=== PATIENT | female | born 1995 | race Caucasian/White ===

== ENCOUNTER 2021-02-04 17:33 | Emergency (ER) | payer MEDICAID ==
[~2021-02-04] VITALS: Ht 157.5 cm; Wt 58.2 kg
[2021-02-04 19:31] VITALS: BP 118/71
[2021-02-04] MEDS ORDERED: CLINDAMYCIN HCL 150 MG CAPSULE. PO ONE (21:00)
[2021-02-04] MEDS ORDERED: LIDOCAINE 1% Multi-Dose 20 ML VIAL. INJ ONE (21:00)
--- NOTE | 2021-02-04 21:10 | PHYS DOC ---
Past Medical History Past Medical History: No Pertinent History Past Surgical History: Smoking Status: Never Smoker Alcohol Use: None General Adult EDM: Chief Complaint: BREAST PROBLEM HPI: HPI: Patient is a 25 year old female who presents with left breast abscess beside the nipple loss. She states that she does get these and just moved here to [place] from [place]. She states that she was seen by a breast specialist who put her on clindamycin in the past and that helped. She is now starting to have some pinkness around the abscesses on her skin starting to form some cellulitis. She states that she is been doing warm compresses and ibuprofen and its not breaking open or draining like it has in the past. She rates her pain 7 out of 10 and states is a burning tender sensation. She states no discharge from her nipples. She denies fever, nausea, vomiting, diarrhea, abdominal pain, chest pain, shortness of breath. She states she tends to get these abscesses around at the time of her periods. Review of Systems: Review of Systems: Constitutional: Denies fever or chills. [] Eyes: Denies change in visual acuity. [] HENT: Denies nasal congestion or sore throat. [] Respiratory: Denies cough or shortness of breath. [] Cardiovascular: Denies chest pain or edema. [] GI: Denies abdominal pain, nausea, vomiting, bloody stools or diarrhea. [] : Denies dysuria. [] Musculoskeletal: Denies back pain or joint pain. + Breast pain [] Integument: Denies rash. + Breast abscess. + Breast redness [] Neurologic: Denies headache, focal weakness or sensory changes. [] Endocrine: Denies polyuria or polydipsia. [] Lymphatic: Denies swollen glands. [] Psychiatric: Denies depression or anxiety. [] Heart Score: C/O Chest Pain: No Risk Factors: Risk Factors: DM, Current or recent (<one month) smoker, HTN, HLP, family history of CAD, obesity. Risk Scores: Score 0 - 3: 2.5% MACE over next 6 weeks - Discharge Home Score 4 - 6: 20.3% MACE over next 6 weeks - Admit for Clinical Observation Score 7 - 10: 72.7% MACE over next 6 weeks - Early Invasive Strategies Current Medications: Current Medications Medications (Trade) Dose Ordered Sig/Gisele Start Time Stop Time Status Last Admin Dose Admin Clindamycin HCl (Cleocin) 300 mg 1X ONCE 02/04/21 21:00 02/04/21 21:01 UNV Lidocaine HCl (Lidocaine 1% 20ml Vial) 20 ml 1X ONCE 02/04/21 21:00 02/04/21 21:01 UNV Physical Exam: PE: Constitutional: Well developed, well nourished, no acute distress, non-toxic appearance. [] HENT: Normocephalic, atraumatic, bilateral external ears normal, oropharynx moist, no oral exudates, nose normal. [] Eyes: PERRLA, EOMI, conjunctiva normal, no discharge. [] Neck: Normal range of motion, no tenderness, supple, no stridor. [] Cardiovascular:Heart rate regular rhythm, no murmur [] Lungs & Thorax: Bilateral breath sounds clear to auscultation [] Abdomen: Bowel sounds normal, soft, no tenderness, no masses, no pulsatile masses. [] Skin: Warm, dry, left breast pink erythema, no rash. + Left breast fluctuant abscess on both sides at 9 and 3 PM on the nipple. [] Back: No tenderness, no CVA tenderness. [] Extremities: No tenderness, no cyanosis, no clubbing, ROM intact, no edema. [] Neurologic: Alert and oriented X 3, normal motor function, normal sensory function, no focal deficits noted. [] Psychologic: Affect normal, judgement normal, mood normal. [] Current Patient Data: Vital Signs: Vital Signs Date Time Temp Pulse Resp B/P (MAP) Pulse Ox O2 Delivery O2 Flow Rate FiO2 02/04/21 19:31 97.5 67 20 118/71 (87) 98 Room Air 97.5 EKG: EKG: [] Radiology/Procedures: Radiology/Procedures: [] Course & Med Decision Making: Course & Med Decision Making Pertinent Labs and Imaging studies reviewed. (See chart for details) See HPI. Alert and oriented x4. Ambulatory with steady gait. Skin pink warm and dry. Afebrile. Left breast has a fluctuant nickel sized abscess to the 9 PM darin at the site of the nipple and another dime sized one that is hard and slightly raised on the 3 PM darin on the right side of the nipple. The skin is starting to turn a slightly pink around the area of the abscess. I drained the left breast abscess and got 2 mL of purulent fluid out of it. It is sent off for culture. Patient is placed on clindamycin. I&D Location: Left breast Anesthesia: 1% lidocaine Scalpel size: 20G needle Skin: Dillard Drainage: 2ML Purulent fluid Packing: None Patient tolerated the procedure well with no complications. The area was prepped and draped in usual sterile fashion. Area was cleaned with chloehexidine prior to procedure. Return for signs and symptoms of infection education given. Patient to return in 48 hours for wound recheck. [] Dragon Disclaimer: Dragon Disclaimer: This electronic medical record was generated, in whole or in part, using a voice recognition dictation system. Departure Departure Impression: Primary Impression: Breast abscess Disposition: HOME / SELF CARE / HOMELESS Condition: STABLE Referrals: NO PCP (PCP) JULIANNE TREVINO MD Patient Instructions: Abscess, Abscess, Care After Additional Instructions: Follow-up with general surgery or a primary care physician as soon as possible. Take antibiotic as prescribed and with food. If anything worsen she can return to the ER. Continue using ibuprofen and warm packs. Scripts Clindamycin Hcl (CLINDAMYCIN HCL) 300 Mg Capsule 1 CAP PO TID, #30 CAP Prov: ROB LEONARD APRN 02/04/21 ROB LEONARD APRN Feb 04, 2021 21:10
[2021-02-04] MEDS ORDERED: CLIN300C9 PO (21:21)
== END 2021-02-04 21:59 | disposition home or self-care (01) ==
LOC: ER 17:33
DX: N61.1 Abscess of the breast and nipple (principal)
CPT/HCPCS: 10060; 87071; 87075; 99283; J3490

== ENCOUNTER 2021-08-03 12:17 | Emergency (ER) | payer MEDICAID, OTHER ==
[~2021-08-03] VITALS: Ht 157.5 cm; Wt 56.0 kg
[~2021-08-03 12:17] MED LIST: CLIN-94 PO
[2021-08-03 12:50] VITALS: BP 133/86
--- NOTE | 2021-08-03 13:14 | PHYS DOC ---
Past Medical History Past Medical History: UTI Past Surgical History: Smoking Status: Never Smoker Alcohol Use: None General Adult EDM: Chief Complaint: URINARY FREQUENCY HPI: HPI: Patient is a 25 year old female who presents with 1 week history of increased urinary frequency and dysuria. Patient reports her symptoms began about 1 week ago and have progressively gotten worse. She now reports associated bilateral flank pain. Patient denies hematuria, fevers, abdominal pain, N/V. She attempted using [id number] Azo urinary pain medication. She took the medication for 2 days, which is the maximum recommended treatment duration before seeking medical evaluation, according to label instructions. Patient states she gets UTIs frequently, but has been over a year since she had one last. She has no other complaints at this time. Review of Systems: Review of Systems: Constitutional: See HPI Respiratory: Denies cough or shortness of breath. Cardiovascular: Denies chest pain or edema. GI: See HPI : See HPI Integument: Denies rash or other skin lesions. Heart Score: C/O Chest Pain: No Allergies: Allergies: Allergies Coded Allergies Type Severity Reaction Last Updated Verified No Known Drug Allergies 02/04/21 No Physical Exam: PE: Constitutional: Well developed, well nourished, no acute distress, non-toxic appearance. Cardiovascular: Heart rate regular rhythm, no murmur. Lungs & Thorax: Bilateral breath sounds clear to auscultation. Abdomen: Bowel sounds normal, soft, mild suprapubic tenderness, no masses, no pulsatile masses. Skin: Warm, dry, no erythema, no rash. Back: No step-off, no midline tenderness, bilateral CVA tenderness. Current Patient Data: Labs: Laboratory Tests Test 08/03/21 12:56 Urine Collection Type Void Urine Color Yellow Urine Clarity Clear Urine pH 6.5 (<5.0-8.0) Urine Specific [place] 1.025 (1.000-1.030) Urine Protein Negative mg/dL (NEG-TRACE) Urine Glucose (UA) Negative mg/dL (NEG) Urine Ketones (Stick) Trace mg/dL (NEG) Urine Blood Negative (NEG) Urine Nitrite Positive (NEG) Urine Bilirubin Negative (NEG) Urine Urobilinogen Dipstick 1.0 mg/dL (0.2 mg/dL) Urine Leukocyte Esterase Small (NEG) Urine RBC 1-2 /HPF (0-2) Urine WBC 11-20 /HPF (0-4) Urine Squamous Epithelial Cells Many /LPF Urine Bacteria Moderate /HPF (0-FEW) Urine Mucus Marked /LPF Vital Signs: Vital Signs Date Time Temp Pulse Resp B/P (MAP) Pulse Ox O2 Delivery O2 Flow Rate FiO2 08/03/21 12:50 98.3 74 16 133/86 (102) 97 Room Air 98.3 Course & Med Decision Making: Course & Med Decision Making Pertinent Labs and Imaging studies reviewed. (See chart for details) Patient is an otherwise healthy 25-year-old female who presents with dysuria and increased urinary frequency. She has a history of UTIs, she states this feels similarly. She is attempted to treat at home without success. UA will be performed today. Urinalysis shows evidence of infection. Patient will be treated with Keflex and prescription was sent to her pharmacy. Patient was provided with return instructions. All questions were answered. Patient understands and is agreeable to discharge plan. Dragon Disclaimer: DragYour Office Agent Disclaimer: This electronic medical record was generated, in whole or in part, using a voice recognition dictation system. Departure Departure Impression: Primary Impression: Urinary tract infection Qualified Codes: N30.00 - Acute cystitis without hematuria Disposition: HOME / SELF CARE / HOMELESS Condition: STABLE Referrals: NO PCP (PCP) Patient Instructions: Urinary Tract Infection, [id number] Additional Instructions: EMERGENCY DEPARTMENT GENERAL DISCHARGE INSTRUCTIONS THANK YOU for coming to [facility] Emergency Department (ED) today and trusting us with your care. We trust that you had a positive experience in our Emergency Department. If you wish to speak to the department Management you can contact the electronics department manager at . YOUR FOLLOW UP INSTRUCTIONS ARE FOLLOWS: Do you have a private doctor? If you do not have a private doctor, please ask for a resource list of physicians or clinics that may be able to assist you with follow up care. A lab test or lab culture may have been done, your results will be reviewed and you will be notified if you need a change in treatment. ADDITIONAL INSTRUCTIONS AND INFORMATION Your care today has been supervised by a physician who is specially trained in emergency care. Many problems require more than one evaluation for a complete diagnosis and treatment. We recommend that you schedule your follow up appointment as recommended to ensure complete treatment of your illness or injury. If you are unable to obtain follow up care and continue to have a problem, or if your condition worsens we recommend that you return to the ED. We are not able to safely determine your condition over the phone nor are we able to give sound medical advice over the phone. For these safety reasons, if you call for medical advice we will ask you to come to the ED for further evaluation If you have any questions regarding these discharge instructions please call the ED at . SAFETY INFORMATION In the interest of safety, wellness, and injury prevention; we encourage you to wear your seatbelt, if you smoke; quit smoking, and we encourage your family to use protective helmet for bicycling and other sporting events that present an in creased risk for head injury. IF YOUR SYMPTOMS WORSEN OR NEW SYMPTOMS DEVELOP, OR YOU HAVE CONCERNS ABOUT YOUR CONDITION; OR IF YOUR CONDITION WORSENS WHILE YOU ARE WAITING FOR YOUR FOLLOW UP APPOINTMENT; EITHER CONTACT YOUR PRIMARY CARE DOCTOR, THE PHYSICIAN WHOSE NAME AND NUMBER YOU WERE GIVEN, OR RETURN TO THE ED IMMEDIATELY. Scripts Cephalexin (KEFLEX) 500 Mg Capsule 1 CAP PO BID for 7 Days, #14 CAP Prov: ALEXANDER PATINO 08/03/21 ALEXANDER PATINO Aug 03, 2021 13:14
[2021-08-03 13:17] LABS: BILIRUBIN,URINE NEGATIVE (NEG); CLARITY,URINE CLEAR; NITRITE,URINE POSITIVE (NEG); PH,URINE 6.5 (<5.0-8.0); PROTEIN,URINE NEGATIVE (NEG-TRACE)
[2021-08-03 13:25] LABS: COLOR,URINE YELLOW
[2021-08-03 13:28] LABS: BACTERIA,URINE MODERATE /HPF (0-FEW)
[2021-08-03] MEDS ORDERED: CEPH500C PO (13:47)
== END 2021-08-03 14:28 | disposition home or self-care (01) ==
LOC: ER 12:17
DX: N30.00 Acute cystitis without hematuria (principal)
CPT/HCPCS: 81001; 87086; 99283